=== PATIENT | female | born 1970 | race Caucasian/White ===

== ENCOUNTER 2017-12-30 08:14 | Outpatient (CLI) | payer BC ==
--- NOTE | 2017-12-30 09:54 | ULT ---
RIGHT BREAST ULTRASOUND LIMITED: Date: 12/30/17 HISTORY: 47-year-old female presents with a palpable finding in the inferior inner right breast. FINDINGS: There is a 1.9 x 2.8 x 4.1 cm diameter thin-walled cyst in the 4:00 position of the right breast, 1.0 cm from the nipple. This cyst does contain some scattered debris. This cyst is stable by mammogram f rom last year. IMPRESSION: BIRADS 2: Benign Finding(s). Large cyst at 4:00, 1.0 cm from the nipple, stable from prior exam. Con tinue annual screening mammography. POS: OFF
== END 2017-12-30 08:15 | disposition home or self-care (01) ==
LOC: BICMAMMO 08:14
PROVIDERS: ATTEND Obstetrics & Gynecology
DX: R92.8 Other abnormal and inconclusive findings on diagnostic imaging of breast (principal); N64.4 Mastodynia; N63.14 Unspecified lump in the right breast, lower inner quadrant
CPT/HCPCS: 77066; G0279

== ENCOUNTER 2019-02-03 08:21 | Outpatient (CLI) | payer BC ==
--- NOTE | 2019-02-03 09:28 | MMO ---
Bilateral MAMMO Bilat Screen [facility]. CLINICAL HISTORY: Patient is 48 years old and is seen for screening. The patient has no family history of breast cancer. The patient has no personal history of cancer. VIEWS: The views performed were: bilateral craniocaudal with tomosynthesis; bilateral mediolateral oblique with tomosynthesis; and bilateral exaggerated craniocaudal. FILMS COMPARED: The present examination has been compared to prior imaging studies performed at on 01/20/2017 and 12/30/2017. This study has been interpreted with the assistance of computer-aided detection. MAMMOGRAM FINDINGS: The breasts are heterogeneously dense, which could obscure a lesion on mammography. Finding 1: There are stable oval masses seen in both breasts. There are no suspicious masses, calcifications or areas of architectural distortion. Finding 2: There are stable benign appearing calcifications seen in both breasts. There are no suspicious masses, suspicious calcifications, or new areas of architectural distortion. IMPRESSION: THERE IS NO MAMMOGRAPHIC EVIDENCE OF MALIGNANCY. A ROUTINE FOLLOW-UP MAMMOGRAM IN 1 YEAR IS RECOMMENDED. THE RESULTS OF THIS EXAM WERE SENT TO THE PATIENT. ACR BI-RADS Category 2 - Benign finding MAMMOGRAPHY NOTE: 1. A negative mammogram report should not delay a biopsy if a dominant of clinically suspicious mass is present. 2. Approximately 10% to 15% of breast cancers are not detected by mammography. 3. Adenosis and dense breasts may obscure an underlying neoplasm. Reported by: ABIODUN PEDRAZA MD Electonically Signed: [id number]
== END 2019-02-03 08:22 | disposition home or self-care (01) ==
LOC: BICMAMMO 08:21
PROVIDERS: ATTEND Obstetrics & Gynecology
DX: Z12.31 Encounter for screening mammogram for malignant neoplasm of breast (principal)
CPT/HCPCS: 77063; 77067